=== PATIENT | male | born 1955 | race Caucasian/White ===

== ENCOUNTER 2019-11-17 09:31 | Outpatient (CLI) | payer MEDICARE, OTHER, SELFPAY | END 2019-11-17 09:32 | disposition home or self-care (01) | LOC: ANHAUDIO 09:32 | PROVIDERS: PCP Internal Medicine; Visit Provider Otolaryngology | DX: H90.3 Sensorineural hearing loss, bilateral (principal) | CPT/HCPCS: 92557; 92567 ==

== ENCOUNTER 2020-01-26 08:59 | Outpatient (CLI) | payer MEDICARE, OTHER, SELFPAY ==
[2020-01-26 09:40] LABS: Alanine Aminotransferase 15 U/L (4-50); Albumin Level 4.4 g/dL (3.5-5.1); Alkaline Phosphatase 45 U/L (38-126); Anion Gap 11.2 mmol/L (7-16); Aspartate Amino Transferase 22 U/L (17-59); Bilirubin,Total 0.6 mg/dL (0.2-1.3); Blood Urea Nitrogen 18 mg/dL (9-20); Calcium 9.2 mg/dL (8.4-10.2); Carbon Dioxide 26 mmol/L (22-30); Chloride 103 mmol/L (98-107); Cholesterol 147 mg/dL (0-200); Estimated Glomerular Filt Rate > 60; Glucose 116 mg/dL (75-110); HDL Direct 35 mg/dL; Potassium 4.2 mmol/L (3.4-5.0); Sodium 136 mmol/L (137-145); Triglycerides 150 mg/dL (<150)
[2020-01-26 09:51] LABS: LDL Cholesterol Direct 73 mg/dL
[2020-01-26 10:01] LABS: Hemoglobin A1C 5.9 % (<5.7)
[2020-01-26 11:42] LABS: Creatinine Urine 51.9 mg/dL
[2020-01-26 11:47] LABS: MALB Creatinine Ratio < 11.6 mg/g (0-30); Microalbumin Urine Random < 6.0 mg/L (0-16.7)
== END 2020-01-26 09:00 | disposition home or self-care (01) ==
LOC: ANHLAB 09:01
PROVIDERS: PCP Internal Medicine; Visit Provider Nurse Practitioner
DX: E11.311 Type 2 diabetes mellitus with unspecified diabetic retinopathy with macular edema (principal); E78.2 Mixed hyperlipidemia
CPT/HCPCS: 36415; 80053; 80061; 82043; 83036

== ENCOUNTER 2020-05-17 13:42 | Outpatient (NON) | payer MEDICARE, OTHER, SELFPAY ==
[2020-05-18 21:00] LABS: SARS-CoV-2 RNA PCR Positive
== END 2020-05-17 13:43 ==
LOC: ANHCOVIDDT 13:45
PROVIDERS: PCP Internal Medicine; Visit Provider Internal Medicine
DX: R68.89 Other general symptoms and signs (principal); U07.1 COVID-19
CPT/HCPCS: 87635; C9803; U0003

== ENCOUNTER 2020-07-28 09:10 | Outpatient (CLI) | payer MEDICARE, OTHER, SELFPAY ==
[2020-07-28 09:57] LABS: Alanine Aminotransferase 20 U/L (4-50); Albumin Level 4.4 g/dL (3.5-5.1); Alkaline Phosphatase 46 U/L (38-126); Anion Gap 5 mmol/L (8-16); Aspartate Amino Transferase 25 U/L (17-59); Bilirubin,Total 0.5 mg/dL (0.2-1.3); Blood Urea Nitrogen 19 mg/dL (9-20); Calcium 9.2 mg/dL (8.4-10.2); Carbon Dioxide 29 mmol/L (22-30); Chloride 104 mmol/L (98-107); Cholesterol 151 mg/dL (0-200); Estimated Glomerular Filt Rate > 60; Glucose 126 mg/dL (75-110); HDL Direct 33 mg/dL; Potassium 4.8 mmol/L (3.4-5.0); Sodium 138 mmol/L (137-145); Triglycerides 189 mg/dL (<150)
[2020-07-28 10:07] LABS: LDL Cholesterol Direct 77 mg/dL
[2020-07-28 10:27] LABS: Prostate Specific Antigen 1.1 ng/mL (< OR = 4.0)
== END 2020-07-28 09:11 | disposition home or self-care (01) ==
LOC: ANHLAB 09:12
PROVIDERS: PCP Internal Medicine; Visit Provider Internal Medicine
DX: Z12.5 Encounter for screening for malignant neoplasm of prostate (principal); E11.311 Type 2 diabetes mellitus with unspecified diabetic retinopathy with macular edema; Z51.81 Encounter for therapeutic drug level monitoring; Z79.899 Other long term (current) drug therapy; E78.5 Hyperlipidemia, unspecified
CPT/HCPCS: 36415; 80053; 80061; 83036; 84153; G0103

== ENCOUNTER 2020-08-11 11:08 | Outpatient (CLI) | payer MEDICARE, OTHER, SELFPAY ==
--- NOTE | ~2020-08-11 | US_ITS ---
EXAMINATION: US carotid duplex BI DATE: 08/11/2020 11:42 INDICATION: Paresthesias of the scan TECHNIQUE: Grayscale, color Doppler, and pulsed Doppler images of the cervical carotid arteries were obtained. The degree of vessel stenosis is placed in one of the following categories: normal, <50%, 5 0-69%, >=70% but less than near-occlusion, near-occlusion, or total occlusion. Note that percent sten osis relative to normal distal artery lumen diameter is indirectly measured from velocity measurement s as described by Mazin, et al. Radiology 2003; 229:340-346. Notes: Normal: Peak systolic velocity <125 centimeters/sec and no plaque <50%. Peak systolic velocity <125 ( EDV <40; ICA/CCA PSV ratio <2.0; used these factors only a tandem lesions or low cardiac output or co ntralateral disease) 50-69 %: PSV 125-230 (EDV 40-100; ratio 2-4) >= 70% but less than near occlusion: PSV greater than 230 (EDV > 100; ratio> 4.0) Near Occlusion: PSV that is variable; markedly narrowed lumen Occlusion: Absent flow on color/spectral Doppler and no lumen on hanson scale. COMPARISON: None. FINDINGS: RIGHT: The right common carotid artery (CCA) peak systolic velocity (PSV) is 81 cm/s. The right internal car otid artery (ICA) PSV is 69 cm/s. The right ICA end-diastolic velocity (EDV) is 23 cm/s. The right IC A/CCA PSV ratio is 0.9. The external carotid artery (ECA) PSV is 69 cm/s. There is antegrade flow in the right vertebral artery. LEFT: The left CCA PSV is 84 cm/s. The left ICA PSV is 81 cm/s. The left ICA EDV is 23 cm/s. The left ICA/C CA PSV ratio is 1.0. The ECA PSV is 80 cm/s. There is antegrade flow in the left vertebral artery. IMPRESSION: 1. Less than 50% stenosis in the right internal carotid artery by sonographic criteria. 2. Less than 50% stenosis in the left internal carotid artery by sonographic criteria. Reviewed, dictated and finalized at location B. AINABLE SYSTEMS ANALYST IMPRESSION: 1. Less than 50% stenosis in the right internal carotid artery by sonographic c mehrdad. 2. Less than 50% stenosis in the left internal carotid artery by sonographic harry rizzo.
--- NOTE | ~2020-08-11 | CT_ITS ---
EXAMINATION: CT brain wo/w con DATE: 08/11/2020 11:57 INDICATION: Paresthesias of the skin TECHNIQUE: Computed tomography (CT) of the head was performed without and with 100 cc Omnipaque 350 i ntravenous contrast. The dose-length product was 1362.00 mGy-cm. Automated exposure control and itera tive reconstruction technique were employed. COMPARISON: CT dated 08/11/2020 FINDINGS: No acute intracranial hemorrhage, infarction, mass or mass effect. No ventriculomegaly or m idline shift. Basilar cisterns are patent. There is intracranial atherosclerosis. Basilar cisterns ar e patent. There are scattered mild periventricular and subcortical white matter changes, most likely related to small vessel ischemic disease (microangiopathy). No abnormal contrast enhancement. Paranas al sinuses and mastoids are pneumatized. No depressed skull fractures. There is mild mucosal thickeni ng of the maxillary sinuses. Mastoids are pneumatized. IMPRESSION: 1. No acute intracranial abnormality. Reviewed, dictated and finalized at location B. CONTENT DEVELOPER
== END 2020-08-11 11:09 | disposition home or self-care (01) ==
LOC: ANHIMG 11:17
PROVIDERS: PCP Internal Medicine; Visit Provider Nurse Practitioner
DX: R20.2 Paresthesia of skin (principal)
CPT/HCPCS: 70470; 93880; Q9967

== ENCOUNTER 2021-02-07 07:54 | Outpatient (CLI) | payer MEDICARE, OTHER, SELFPAY ==
[2021-02-07 08:32] LABS: Alanine Aminotransferase 21 U/L (4-50); Albumin Level 4.3 g/dL (3.5-5.1); Alkaline Phosphatase 57 U/L (38-126); Anion Gap 6 mmol/L (8-16); Aspartate Amino Transferase 24 U/L (17-59); Bilirubin,Total 0.4 mg/dL (0.2-1.3); Blood Urea Nitrogen 21 mg/dL (9-20); Calcium 9.5 mg/dL (8.4-10.2); Carbon Dioxide 28 mmol/L (22-30); Chloride 102 mmol/L (98-107); Cholesterol 178 mg/dL (0-200); Estimated Glomerular Filt Rate > 60; Glucose 123 mg/dL (65-110); HDL Direct 37 mg/dL; Potassium 4.3 mmol/L (3.4-5.0); Sodium 136 mmol/L (137-145); Triglycerides 228 mg/dL (<150)
[2021-02-07 08:43] LABS: LDL Cholesterol Direct 80 mg/dL
[2021-02-07 09:31] LABS: Creatinine Urine 43.4 mg/dL
[2021-02-07 09:42] LABS: MALB Creatinine Ratio < 13.8 mg/g (0-30); Microalbumin Urine Random < 6.0 mg/L (0-16.7)
[2021-02-07 10:37] LABS: Hemoglobin A1C 6.2 % (<5.7)
== END 2021-02-07 07:55 | disposition home or self-care (01) ==
LOC: ANHLAB 08:00
PROVIDERS: PCP Internal Medicine; Visit Provider Nurse Practitioner
DX: E78.5 Hyperlipidemia, unspecified (principal); E11.311 Type 2 diabetes mellitus with unspecified diabetic retinopathy with macular edema
CPT/HCPCS: 36415; 80053; 80061; 82043; 83036

== ENCOUNTER 2021-08-22 07:38 | Outpatient (CLI) | payer MEDICARE, SELFPAY ==
[2021-08-22 08:14] LABS: Alanine Aminotransferase 20 U/L (4-50); Albumin Level 4.3 g/dL (3.5-5.1); Alkaline Phosphatase 52 U/L (38-126); Anion Gap 5 mmol/L (8-16); Aspartate Amino Transferase 26 U/L (17-59); Bilirubin,Total 0.5 mg/dL (0.2-1.3); Blood Urea Nitrogen 22 mg/dL (9-20); Calcium 8.8 mg/dL (8.4-10.2); Carbon Dioxide 27 mmol/L (22-30); Chloride 106 mmol/L (98-107); Cholesterol 174 mg/dL (0-200); Estimated Glomerular Filt Rate > 60; Glucose 130 mg/dL (65-110); HDL Direct 40 mg/dL; Potassium 4.6 mmol/L (3.4-5.0); Sodium 138 mmol/L (137-145); Triglycerides 170 mg/dL (<150)
[2021-08-22 08:26] LABS: LDL Cholesterol Direct 93 mg/dL
[2021-08-22 08:29] LABS: Creatinine Urine 145.9 mg/dL
[2021-08-22 08:43] LABS: Prostate Specific Antigen 1.1 ng/mL (< OR = 4.0)
[2021-08-22 09:10] LABS: Hemoglobin A1C 6.2 % (<5.7)
[2021-08-22 09:18] LABS: MALB Creatinine Ratio < 4.1 mg/g (0-30); Microalbumin Urine Random < 6.0 mg/L (0-16.7)
== END 2021-08-22 07:39 | disposition home or self-care (01) ==
PROVIDERS: PCP Internal Medicine; Visit Provider Nurse Practitioner
DX: E11.311 Type 2 diabetes mellitus with unspecified diabetic retinopathy with macular edema (principal); Z12.5 Encounter for screening for malignant neoplasm of prostate; E78.2 Mixed hyperlipidemia
CPT/HCPCS: 36415; 80053; 80061; 82043; 83036; 84153; G0103

== ENCOUNTER 2022-02-28 07:43 | Outpatient (CLI) | payer MEDICARE, SELFPAY ==
[2022-02-28 08:17] LABS: Hemoglobin A1C 6.3 % (<5.7)
[2022-02-28 08:19] LABS: Alanine Aminotransferase 17 U/L (6-50); Albumin Level 4.3 g/dL (3.5-5.1); Alkaline Phosphatase 54 U/L (38-126); Anion Gap 12 mmol/L (8-16); Aspartate Amino Transferase 21 U/L (17-59); Bilirubin,Total 0.5 mg/dL (0.2-1.3); Blood Urea Nitrogen 20 mg/dL (9-20); Calcium 9.4 mg/dL (8.4-10.2); Carbon Dioxide 25 mmol/L (22-30); Chloride 102 mmol/L (98-107); Cholesterol 153 mg/dL (0-200); Estimated Glomerular Filt Rate > 60; Glucose 132 mg/dL (65-110); HDL Direct 40 mg/dL; Potassium 4.3 mmol/L (3.4-5.0); Sodium 139 mmol/L (137-145); Triglycerides 176 mg/dL (<150)
[2022-02-28 08:30] LABS: LDL Cholesterol Direct 65 mg/dL
== END 2022-02-28 07:44 | disposition home or self-care (01) ==
LOC: ANHLAB 07:55
PROVIDERS: PCP Internal Medicine; Visit Provider Internal Medicine
DX: E11.311 Type 2 diabetes mellitus with unspecified diabetic retinopathy with macular edema (principal); E78.2 Mixed hyperlipidemia
CPT/HCPCS: 36415; 80053; 80061; 83036

== ENCOUNTER 2022-06-30 17:57 | Emergency (ER) | payer MEDICARE, SELFPAY ==
[2022-06-30] VITALS (12 sets, daily range): BP systolic 125–159; BP diastolic 81–95; PULSE 71–89; RESP 11–19; TEMP 36.4; O2SAT 96–99
--- NOTE | ~2022-06-30 | CT_ITS ---
EXAMINATION: CTA chest PE protocol DATE: 06/30/2022 22:15 INDICATION: Right chest pain. Shortness of breath. TECHNIQUE: Computed tomography angiography (CTA) of the chest was performed with 100 mL Omnipaque-350 intravenous contrast timed to evaluate the pulmonary arteries. Coronal maximum intensity projection 3D-reconstructions were created by the technologist. Automated exposure control and iterative reconst ruction technique were employed. The dose-length product was 638.00 mGy-cm. COMPARISON: Chest 2 views 06/30/2022 FINDINGS: The lungs demonstrate mild atelectasis. No pleural effusion. Calcified left hilar lymph nod es are consistent with old granulomatous disease. The heart size is normal. There are coronary artery calcifications. No pericardial effusion. The central pulmonary arteries are enlarged, consistent wit h pulmonary arterial hypertension. There is no pulmonary embolus. There is mild thoracic spondylosis. IMPRESSION: 1. No pulmonary embolus. Reviewed, dictated and finalized at location A. DINGS PAINTER IMPRESSION: 1. No pulmonary embolus.
--- NOTE | ~2022-06-30 | XR_ITS ---
EXAMINATION: XR chest 2V Exam Date/Time: 06/30/2022 18:15 WOOL HAT FINISHER HISTORY: right sided chest pain x 6 days, not getting better Comparison: None available. RESULT: Lines, tubes, and devices: None. Lungs and pleura: Clear. Cardiomediastinal silhouette: Unremarkable. Other: No acute osseous or upper abdominal finding. IMPRESSION: No acute cardiopulmonary process. Reviewed, dictated and finalized at location K. HAT FINISHER
--- NOTE | 2022-06-30 17:58 | ECG_ITS ---
Measurements Intervals [place] Rate: 81 P: 59 FL: 152 QRS: -18 QRSD: 90 T: 35 QT: 353 QTc: 411 Interpretive Statements SINUS RHYTHM POOR R WAVE PROGRESSION, ANTERIOR LEADS BASELINE ARTIFACT- I, III, AVL, AVF, V3 BORDERLINE ECG NO PREVIOUS ECG AVAILABLE FOR COMPARISON Electronically Signed On 06-30-2022 19:38:35 COMPUTER EDUCATION TEACHER by Andrew Arriaga D.O.
[2022-06-30 18:29] LABS: Basophils Absolute Auto 0.1 K/mm3 (0.0-0.1); Basophils Percent Auto 0.6 % (0.2-1.2); Eosinophils Absolute Auto 0.2 K/mm3 (0-0.3); Eosinophils Percent Auto 2.4 % (0-4.4); Hematocrit 41.5 % (42.0-52.0); Hemoglobin 13.9 g/dL (14.0-18.0); Immature Granulocyte Absolute 0.05 K/mm3 (0.00-0.031); Immature Granulocyte Percent A 0.6 % (0-0.5); Lymphocytes Absolute Auto 2.49 K/mm3 (0.9-3.2); Lymphocytes Percent Auto 28.4 % (18.3-44.2); Mean Corpuscular HGB Conc 33.5 g/dl (32-36); Mean Corpuscular Hemoglobin 30.1 pg (26-34); Mean Corpuscular Volume 89.8 fl (80-100); Mean Platelet Volume 9.2 fl (7.4-10.4); Monocytes Absolute Auto 0.6 K/mm3 (0.1-0.6); Monocytes Percent Auto 7.1 % (2.6-8.5); Neutrophils Absolute Auto 5.4 K/mm3 (1.3-6.7); Neutrophils Percent Auto 60.9 % (45.5-73.1); Platelet Count Result 274 k/mm3 (150-375); Red Blood Count 4.62 M/mm3 (4.6-6.20); Red Cell Distribution Width 12.6 % (11.5-14.5); White Blood Count 8.8 K/mm3 (4.5-10.0)
[2022-06-30 19:15] LABS: Alanine Aminotransferase 23 U/L (6-50); Albumin Level 4.5 g/dL (3.5-5.1); Alkaline Phosphatase 73 U/L (38-126); Anion Gap 5 mmol/L (8-16); Aspartate Amino Transferase 30 U/L (17-59); Bilirubin,Total 0.5 mg/dL (0.2-1.3); Blood Urea Nitrogen 17 mg/dL (9-20); Calcium 8.9 mg/dL (8.4-10.2); Carbon Dioxide 28 mmol/L (22-30); Chloride 104 mmol/L (98-107); Estimated CRCL calculation 70 ml/min; Estimated Glomerular Filt Rate > 60; Glucose 152 mg/dL (65-110); Lipase 77 U/L (23-300); Potassium 4.5 mmol/L (3.4-5.0); Sodium 137 mmol/L (137-145)
[2022-06-30 19:26] LABS: Troponin I < 0.012 ng/mL (0.000-0.034)
--- NOTE | 2022-06-30 21:37 | ED.CHESTPAIN ---
HPI - Chest Pain General Chief Complaint: Chest Pain Stated Complaint: chest pain Time Seen by Provider: 06/30/22 21:29 Source: RN notes reviewed History of Present Illness HPI narrative: Patient presents emergency department from home for chest pain. Patient states that over the past week he has had pain in the right side of the chest that radiates around into his right shoulder blade. The pain is described as a pressure in nature. States it makes the pain better or worse. He notes some mild shortness of breath with the symptoms he denies any previous cardiac history he denies any fevers or chills abdominal pain nausea vomiting diarrhea or any other symptoms. Patient states he was in [place] last week and had gone to the emergency department last in [place] and had a work-up that was negative including a CT scan and then was cleared and discharged from the ER he states that he flew home and continued pain and came for further evaluation Related Data Allergies Allergy/AdvReac Type Severity Reaction Status Date / Time No Known Allergies Allergy Unknown Unknown Uncoded 06/30/22 22:51 Review of Systems Review of Systems: Gen.: Denies fevers or chills ENT: Denies congestion Respiratory: Ports shortness of breath CV no chest pain GI: Denies abdominal pain nausea, emesis or diarrhea Musculoskeletal: Denies back pain or muscle pain Neuro: Denies numbness, tingling, weakness or focal weakness Skin: Denies rash Except as documented, all other systems reviewed and negative [facility] Past Medical History Medical History (Updated 07/01/22 @ 01:00 by Elias Parsons DO) Tinnitus 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 CARDIOVASCULAR: Regular rate and rhythm without murmurs rubs or gallops. ABDOMINAL: Soft, nontender, nondistended, no rebound or guarding MUSCULOSKELETAl: Moves all extremities. No clubbing, cyanosis or edema. NEURO: Awake and alert. Following commands, speech normal, no focal deficits SKIN:: Warm, dry. No rashes lesions or abrasions no rash on chest PSYCHIATRIC: Normal affect/mood, Course Course Emergency Course: : Discussed with Dr. Nichols presentation work-up we discussed the patient's heart score as well as pain for 5 days with 3 negative troponins at this time he feels patient may be discharged follow-up as an outpatient Patient does note some improvement pain with Toradol Discussed with patient results of workup and diagnosis. Discussed need for follow-up with primary care, proper use of medication, and reasons to return to the emergency department. Patient understands and agrees to current treatment plan Vital Signs Vital signs: Vital Signs Temperature 97.6 F 06/30/22 18:04 Pulse Rate 89 06/30/22 18:04 Respiratory Rate 16 06/30/22 18:04 Blood Pressure 146/81 H 06/30/22 18:04 Pulse Oximetry 99 06/30/22 18:04 Oxygen Delivery Room Air 06/30/22 18:04 Temperature 97.6 F 06/30/22 18:04 Pulse Rate 80 06/30/22 22:51 Respiratory Rate 16 06/30/22 22:45 Blood Pressure 125/85 06/30/22 21:47 Pulse Oximetry 97 06/30/22 22:45 Oxygen Delivery Room Air 06/30/22 18:04 MDM - Chest Pain MDM Narrative Medical decision making narrative: Patient's EKGs and labs are without significant high risk changes. Cardiac risk factors reviewed. Pain has been constant for 5 days with 3 negative troponins in the emergency department. CTA shows no pneumonia aneurysm or
[2022-06-30 22:04] LABS: Prothrombin Time 12.9 Seconds (11.1-14.7)
[2022-06-30 22:05] LABS: Partial Thromboplastin Time 26.3 SECONDS (22.3-36.8)
[2022-06-30 22:14] LABS: Troponin I < 0.012 ng/mL (0.000-0.034)
--- NOTE | 2022-06-30 23:09 | PC.NURSE ---
Report received from TYLER Paz. Assumed care of patient at this time.
[2022-07-01 00:14] VITALS: O2SAT 93
[2022-07-01 00:15] VITALS: PULSE 68; O2SAT 98
[2022-07-01 00:16] VITALS: BP 109/84; PULSE 71; RESP 15; O2SAT 97
[2022-07-01 00:35] VITALS: O2SAT 98
[2022-07-01 00:45] VITALS: PULSE 67; O2SAT 97
[2022-07-01 00:50] LABS: Troponin I < 0.012 ng/mL (0.000-0.034)
[2022-07-01 01:00] VITALS: O2SAT 98
[2022-07-01] MEDS: KETOROLAC 15 MG/ML VIAL (*BKC) IV PUSH (01:06)
== END 2022-07-01 01:12 | disposition home or self-care (01) ==
PROVIDERS: Emergency Medicine; Emergency Provider Emergency Medicine; PCP Internal Medicine
DX: R07.89 Other chest pain (principal); E11.311 Type 2 diabetes mellitus with unspecified diabetic retinopathy with macular edema; Z79.84 Long term (current) use of oral hypoglycemic drugs; Z79.82 Long term (current) use of aspirin; R94.31 Abnormal electrocardiogram [ECG] [EKG]
CPT/HCPCS: 36415; 71046; 71275; 80053; 83690; 84484; 85025; 85610; 85730; 93005; 96374; 99284; A9270; J1885; Q9967

== ENCOUNTER 2022-07-04 13:27 | Outpatient (CLI) | payer MEDICARE, SELFPAY ==
--- NOTE | ~2022-07-04 | XR_ITS ---
XR_CERV2-3V_CR DATE: 07/04/2022 13:51 INDICATION: Right neck pain. No known injury. TECHNIQUE: AP, lateral, open-mouth and swimmer views COMPARISON: None FINDINGS: There is straightening of the cervical spine which may be due to muscle spasm. C1 and C2 are normally aligned and the odontoid process is intact. No fracture or dislocation or lock ed facet or prevertebral soft tissue swelling. Moderately severe degenerative disc disease at C3-4. Mild degenerative disc disease at C4-5 and C5-6. Moderately severe degenerative disc disease at C6-7. No fracture or dislocation, locked facet or prevertebral soft tissue swelling IMPRESSION: Straightening of the cervical spine, which may be due to muscle spasm Multilevel degenerative disc disease Reviewed, dictated and finalized at Location A. Reviewed, dictated and finalized at location A. ERIES SPECIALIST IMPRESSION: Straightening of the cervical spine, which may be due to muscle spa sm Multilevel degenerative disc disease
--- NOTE | ~2022-07-04 | XR_ITS ---
XR thoracic spine 3V DATE: 07/04/2022 13:51 INDICATION: Right back pain TECHNIQUE: AP, lateral, swimmer views COMPARISON: None FINDINGS: There is cervical spondylosis including moderately severe degenerative disc disease at C3-4 , C5-6 and C6-7. Diffuse idiopathic skeletal hyperostosis of the thoracic spine. No fracture or dislocation or bone destruction. The thoracic pedicles are intact. No paraspinal soft tissue thickening. IMPRESSION: Cervical spondylosis Diffuse idiopathic skeletal hyperostosis of the thoracic spine Reviewed, dictated and finalized at location A. STITCHER
== END 2022-07-04 13:28 | disposition home or self-care (01) ==
LOC: ANHIMG 13:32
PROVIDERS: PCP Internal Medicine; Visit Provider Internal Medicine
DX: M54.9 Dorsalgia, unspecified (principal); M54.2 Cervicalgia; M43.02 Spondylolysis, cervical region; M48.14 Ankylosing hyperostosis [Forestier], thoracic region; M50.30 Other cervical disc degeneration, unspecified cervical region
CPT/HCPCS: 72040; 72072

== ENCOUNTER 2022-08-14 07:24 | Outpatient (CLI) | payer MEDICARE, SELFPAY ==
--- NOTE | ~2022-08-14 | MR_ITS ---
EXAMINATION: MR cervical spine wo con DATE: 08/14/2022 08:00 INDICATION: Neck pain. Left arm numbness. TECHNIQUE: Magnetic resonance imaging (MRI) of the cervical spine was performed without intravenous c ontrast. Sequences included sagittal T2-weighted FSE, sagittal T2-weighted FS FSE, sagittal T1-weight ed FSE, axial MERGE, and axial T2-weighted FSE. COMPARISON: Cervical spine radiographs 07/04/2022 FINDINGS: There is mild kyphosis of lower cervical spine. There is mild chronic anterior wedging of C 6 vertebral body. There is severely decreased disc height at C3-C4, mildly decreased disc height at C 4-C5, and moderately decreased disc height at C6-C7. The spinal cord signal intensity is normal. The following disc levels are specifically discussed: C2-C3: There is a central extrusion. There is no uncovertebral joint osteoarthritis. There is moderat e right and severe left facet joint osteoarthritis. There is moderate left neural foraminal stenosis. There is mild central canal stenosis. C3-C4: The disc is bulging with superimposed central extrusion. There is severe bilateral uncovertebr al joint osteoarthritis. There is moderate right and severe left facet joint osteoarthritis. There is severe bilateral neural foraminal stenosis. There is moderate central canal stenosis with ventral an d dorsal indentation of the spinal cord. C4-C5: The disc is bulging. There is moderate right and mild left uncovertebral joint osteoarthritis. There is severe right and moderate left facet joint osteoarthritis. There is severe right and mild l eft neural foraminal stenosis. There is mild central canal stenosis. C5-C6: The disc is bulging. There is moderate bilateral uncovertebral joint osteoarthritis. There is severe bilateral facet joint osteoarthritis. There is moderate bilateral neural foraminal stenosis. T here is mild central canal stenosis with ventral indentation of the spinal cord. C6-C7: The disc is bulging. There is severe bilateral uncovertebral joint osteoarthritis. There is mi ld bilateral facet joint osteoarthritis. There is severe bilateral neural foraminal stenosis. There i s mild central canal stenosis. C7-T1: There is a central extrusion. There is mild bilateral uncovertebral joint osteoarthritis. Ther e is severe bilateral facet joint osteoarthritis. There is mild bilateral neural foraminal stenosis. There is no central canal stenosis. IMPRESSION: 1. Severe cervical spondylosis. Reviewed, dictated and finalized at location A. R ENERGY CONSULTANT AND DESIGNER
== END 2022-08-14 07:25 | disposition home or self-care (01) ==
PROVIDERS: PCP Internal Medicine; Visit Provider Orthopaedic Surgery
DX: M47.812 Spondylosis without myelopathy or radiculopathy, cervical region (principal)
CPT/HCPCS: 72141

== ENCOUNTER 2022-11-22 08:33 | Outpatient (CLI) | payer MEDICARE, SELFPAY ==
[2022-11-22 09:34] LABS: Hemoglobin A1C 6.8 % (<5.7)
[2022-11-22 09:35] LABS: Alanine Aminotransferase 24 U/L (6-50); Albumin Level 4.3 g/dL (3.5-5.1); Alkaline Phosphatase 53 U/L (38-126); Anion Gap 5 mmol/L (8-16); Aspartate Amino Transferase 29 U/L (17-59); Bilirubin,Total 0.7 mg/dL (0.2-1.3); Blood Urea Nitrogen 16 mg/dL (9-20); Carbon Dioxide 28 mmol/L (22-30); Chloride 104 mmol/L (98-107); Cholesterol 181 mg/dL (0-200); Estimated Glomerular Filt Rate > 60; Glucose 148 mg/dL (65-110); HDL Direct 35 mg/dL; Potassium 4.7 mmol/L (3.4-5.0); Sodium 137 mmol/L (137-145); Triglycerides 235 mg/dL (<150)
[2022-11-22 09:47] LABS: LDL Cholesterol Direct 85 mg/dL
[2022-11-22 10:06] LABS: Prostate Specific Antigen 1.3 ng/mL (< OR = 4.0)
== END 2022-11-22 08:34 | disposition home or self-care (01) ==
LOC: ANHLAB 08:35
PROVIDERS: PCP Family Medicine; Visit Provider Nurse Practitioner
DX: E11.9 Type 2 diabetes mellitus without complications (principal); Z12.5 Encounter for screening for malignant neoplasm of prostate; E78.5 Hyperlipidemia, unspecified
CPT/HCPCS: 36415; 80053; 80061; 83036; 84153; G0103

== ENCOUNTER 2023-05-29 08:10 | Outpatient (CLI) | payer MEDICARE, SELFPAY ==
[2023-05-29 09:19] LABS: Alanine Aminotransferase 24 U/L (6-50); Albumin Level 4.2 g/dL (3.5-5.1); Alkaline Phosphatase 60 U/L (38-126); Anion Gap 10 mmol/L (8-16); Aspartate Amino Transferase 26 U/L (17-59); Bilirubin,Total 0.8 mg/dL (0.2-1.3); Blood Urea Nitrogen 17 mg/dL (9-20); Calcium 9.2 mg/dL (8.4-10.2); Carbon Dioxide 24 mmol/L (22-30); Chloride 104 mmol/L (98-107); Cholesterol 190 mg/dL (0-200); Estimated Glomerular Filt Rate > 60; Glucose 152 mg/dL (65-110); HDL Direct 35 mg/dL; Potassium 4.3 mmol/L (3.4-5.0); Sodium 138 mmol/L (137-145); Triglycerides 233 mg/dL (<150)
[2023-05-29 09:32] LABS: LDL Cholesterol Direct 85 mg/dL
[2023-05-29 09:52] LABS: Hemoglobin A1C 6.8 % (<5.7)
== END 2023-05-29 08:11 | disposition home or self-care (01) ==
PROVIDERS: PCP Nurse Practitioner; Visit Provider Nurse Practitioner
DX: E78.5 Hyperlipidemia, unspecified (principal); E11.9 Type 2 diabetes mellitus without complications
CPT/HCPCS: 36415; 80053; 80061; 83036

== ENCOUNTER 2023-07-06 13:32 | Emergency (ER) | payer MEDICARE, SELFPAY ==
[2023-07-06] VITALS (27 sets, daily range): BP systolic 110–130; BP diastolic 66–94; PULSE 88–104; RESP 14–26; TEMP 36.8; O2SAT 93–98
--- NOTE | ~2023-07-06 | CT_ITS ---
EXAMINATION: CT abdomen pelvis w con INDICATION: Diffuse abdominal pain and bloating TECHNIQUE: Computed tomographic images of the abdomen and pelvis were obtained after the administrati on of 100 cc of Omnipaque 350 intravenous contrast. The dose-length product (DLP) was 910.11 mGy-cm. Automated exposure control and iterative reconstruction technique were employed. COMPARISON: None available FINDINGS: Minimal dependent atelectasis is present in the lung bases. The heart size is normal. The l iver, spleen, pancreas, gallbladder, and adrenal glands are normal. Hypoattenuating lesions of the ki dneys, measuring up to 10 mm on the left, are consistent with cysts. There is a small sliding hiatal hernia. No pathologically enlarged abdominal or pelvic lymph nodes are identified. No free intraperit urias gas or evidence of bowel obstruction. There is a left inguinal hernia containing fat. There is mild lumbar spondylosis. IMPRESSION: 1. No CT correlate for the patient's symptoms. Reviewed, dictated and finalized at location F. CAL COLLECTIONS SPECIALIST
--- NOTE | 2023-07-06 13:46 | ECG_ITS ---
Measurements Intervals [place] Rate: 99 P: 32 PA: 154 QRS: -44 QRSD: 86 T: 23 QT: 328 QTc: 423 Interpretive Statements SINUS RHYTHM LEFT AXIS DEVIATION LATERAL INFARCT, AGE INDETERMINATE CONSIDER INFERIOR INFARCT, AGE INDETERMINATE BASELINE ARTIFACT- I, II, III, AVL, AVF, V1, V3, V5 ABNORMAL ECG COMPARED TO ECG 06/30/2022 18:04:04 LEFT-AXIS DEVIATION NOW PRESENT Electronically Signed On 07-06-2023 16:14:14 PUBLIC HEALTH PHYSICIAN by Andrew Arriaga D.O.
[2023-07-06 14:17] LABS: Basophils Percent Auto 0.2 % (0.2-1.2); Eosinophils Absolute Auto 0.1 K/mm3 (0-0.3); Eosinophils Percent Auto 0.5 % (0-4.4); Hematocrit 44.4 % (42.0-52.0); Hemoglobin 14.4 g/dL (14.0-18.0); Immature Granulocyte Absolute 0.05 K/mm3 (0.00-0.031); Immature Granulocyte Percent A 0.4 % (0-0.5); Lymphocytes Absolute Auto 0.53 K/mm3 (0.9-3.2); Lymphocytes Percent Auto 4.5 % (18.3-44.2); Mean Corpuscular HGB Conc 32.4 g/dl (32-36); Mean Corpuscular Volume 92.5 fl (80-100); Mean Platelet Volume 9.2 fl (7.4-10.4); Monocytes Absolute Auto 0.5 K/mm3 (0.1-0.6); Monocytes Percent Auto 4.2 % (2.6-8.5); Neutrophils Absolute Auto 10.6 K/mm3 (1.3-6.7); Neutrophils Percent Auto 90.2 % (45.5-73.1); Platelet Count Result 207 k/mm3 (150-375); White Blood Count 11.8 K/mm3 (4.5-10.0)
--- NOTE | 2023-07-06 14:43 | ED.GENADULT ---
HPI - General Adult General Chief complaint: Syncope Stated complaint: near syncope, abd pain x 3 hrs Time Seen by Provider: 07/06/23 14:43 Source: patient, family and EMS Mode of arrival: EMS Limitations: no limitations History of Present Illness HPI narrative: 67 YEARS OLD WHITE MALE CAME TO THE EMERGENCY ROOM BY AMBULANCE BECAUSE OF ABDOMINAL PAIN. PATIENT REPORTS WAKING UP THIS MORNING WITH ABDOMINAL PAIN, GENERALIZED, PULSATING WITH BLOATING. HE DENIES ANY FEVER, CHILLS, VOMITING, DIARRHEA. HE DENIES ANY AGGRAVATING OR RELIEVING FACTORS, PAIN WAS 6/10. PATIENT AFTER FINISHING HAVING A SHOWER FELT WEAK ALL OVER, WENT DOWN TO THE FLOOR SLOWLY, DENIED LOSS OF CONSCIOUSNESS, HEAD INJURY OR NECK INJURY OR BACK INJURY. OR ANY OTHER INJURIES. CURRENTLY PATIENT STILL HAVING DIFFUSE ABDOMINAL PAIN, NO RADIATION. HISTORY OF APPENDECTOMY, DIABETES, HYPERTENSION, HYPERLIPIDEMIA NOT ON BLOOD THINNER, DOES NOT SMOKE OR DRINK. Related Data Home Medications Medication Instructions Recorded Confirmed aspirin 81 mg tablet,delayed 81 mg PO DAILY 07/25/22 03/11/23 release (Adult Aspirin Regimen) Allergies Allergy/AdvReac Type Severity Reaction Status Date / Time No Known Allergies Allergy Unknown Unknown Uncoded 07/06/23 14:23 Review of Systems Review of Systems: All systems reviewed & are unremarkable except as noted in HPI and below ROS unobtainable: Yes unobtainable due to endotracheal tube PMFSH Past Medical History Medical History Arthritis Essential hypertension Mixed hyperlipidemia Sensorineural hearing loss, bilateral Tinnitus 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 States he wakes up once a night to use the restroom, does claim difficulty in maintaining an erection. Is okay to leave a detailed message regarding his private health information. Smoking status: Never smoker Second hand tobacco smoke exposure: No Alcohol intake: never Substance use: never Substance use type: does not use Lack of Transportation: No Lack of Food: Never True Current Housing: I Have Housing Concerned About Future Housing: No Difficulty Paying Gas/Electric Bills: No Difficulty Paying for Meds: No Currently Unemployed: No Education: Associate Degree Difficulty w/ Childcare or Family Care: No Living arrangements: with family Occupation/Education: occupation Additional occupation/education comments: Health And Safety Advisor at [employer]. Gender identity (if verbalized by the patient): Male Sexual Orientation (if Verbalized by the Patient): Straight or Heterosexual Spiritual care concerns: No Agree to blood products: Yes Exam Narrative: GENERAL APPEARANCE: WELL-DEVELOPED, WELL-NOURISHED SKIN: NORMAL COLOR HEAD: NORMOCEPHALIC, NONTRAUMATIC EYES: CLEAR CONJUNCTIVA ENT: OROPHARYNX NORMAL, EARS NORMAL, NOSE NORMAL NECK: SUPPLE, NONTENDER CHEST AND RESPIRATORY: AIRWAY PATENT, NO RESPIRATORY DISTRESS, NO ACCESSORY MUSCLE USE HEART: REGULAR RATE/RHYTHM ABDOMEN: SOFT, NONTENDER, NO ORGANOMEGALY, QUIET BOWEL SOUNDS VASCULAR: NORMAL PERIPHERAL PULSES, NORMAL CAPILLARY REFILL. MUSCULOSKELETAL: NORMAL RANGE OF MOTION, NONTENDER BACK NEUROLOGIC: ALERT AND ORIENTED ?3, ASSISTANT PRODUCER IS NORMAL TESTED, NO GROSS MOTOR DEFICIT
[2023-07-06 14:54] LABS: Alanine Aminotransferase 22 U/L (6-50); Albumin Level 4.4 g/dL (3.5-5.1); Alkaline Phosphatase 63 U/L (38-126); Anion Gap 11 mmol/L (8-16); Aspartate Amino Transferase 28 U/L (17-59); Bilirubin,Total 0.7 mg/dL (0.2-1.3); Blood Urea Nitrogen 19 mg/dL (9-20); Calcium 9.1 mg/dL (8.4-10.2); Carbon Dioxide 23 mmol/L (22-30); Chloride 104 mmol/L (98-107); Estimated CRCL calculation 71 ml/min; Estimated Glomerular Filt Rate > 60; Glucose 181 mg/dL (65-110); Potassium 4.5 mmol/L (3.4-5.0); Sodium 138 mmol/L (137-145)
[2023-07-06] MEDS: ONDANSETRON INJ 4 MG/2 ML VIAL IV PUSH (15:07)
[2023-07-06] MEDS: HYDROmorphone HCL INJ (*CRX) 1 MG/ML SYR 0.5 MG IV PUSH (15:07)
[2023-07-06] MEDS: SODIUM CHLORIDE 0.9% IV 1,000 ML 999 ML IV CONT (15:07)
[2023-07-06 15:20] LABS: Lactic Acid Reflex 1.9 mmol/L (0.7-2.0)
[2023-07-06 15:25] LABS: Lipase 138 U/L (23-300)
[2023-07-06 15:32] LABS: Partial Thromboplastin Time 22.5 SECONDS (22.3-36.8); Prothrombin Time 13.2 Seconds (11.1-14.7)
[2023-07-06 15:38] LABS: Troponin I < 0.012 ng/mL (0.000-0.034)
[2023-07-06 16:51] LABS: Appearance Urine Clear (Clear); Bilirubin Urine Negative (Negative); Blood Urine Negative (Negative); Color Urine Yellow (Yellow); Glucose Urine UA Negative (Negative); Ketones Urine Negative (Negative); Leukocyte Esterase Ur Negative LEU/UL (Negative); Nitrate Urine Negative (Negative); Protein Urine Negative (Negative); Urobilinogen Urine 0.2 mg/dL (<2.0)
[2023-07-06 17:05] LABS: Specific Grav Ur 1.083 (1.001-1.035)
[2023-07-06 17:06] LABS: Add Urine Microscopic? NO
[2023-07-06 17:45] LABS: Influenza A QL RT-PCR Negative (Negative); Influenza B QL RT-PCR Negative (Negative); RSV RNA, RT-PCR Negative (Negative); SARS-CoV-2 RNA PCR Negative (Negative)
== END 2023-07-06 18:32 | disposition home or self-care (01) ==
PROVIDERS: Emergency Provider Emergency Medicine; PCP Nurse Practitioner
DX: R10.84 Generalized abdominal pain (principal); Z20.822 Contact with and (suspected) exposure to COVID-19; I10 Essential (primary) hypertension; E78.2 Mixed hyperlipidemia; E11.311 Type 2 diabetes mellitus with unspecified diabetic retinopathy with macular edema; H90.3 Sensorineural hearing loss, bilateral; M19.90 Unspecified osteoarthritis, unspecified site; Z79.82 Long term (current) use of aspirin; Z79.84 Long term (current) use of oral hypoglycemic drugs
CPT/HCPCS: 36415; 74177; 80053; 81003; 83605; 83690; 84484; 85025; 85610; 85730; 87637; 93005; 96361; 96374; 96375; 99284; J1170; J2405; J7030; Q9967

== ENCOUNTER 2024-04-09 08:27 | Outpatient (CLI) | payer MEDICARE, SELFPAY ==
[2024-04-09 09:36] LABS: Alanine Aminotransferase 16 U/L (6-50); Albumin Level 4.3 g/dL (3.5-5.1); Alkaline Phosphatase 56 U/L (38-126); Anion Gap 8 mmol/L (4-12); Aspartate Amino Transferase 25 U/L (17-59); Bilirubin,Total 0.6 mg/dL (0.2-1.3); Blood Urea Nitrogen 20 mg/dL (9-20); Calcium 9.2 mg/dL (8.4-10.2); Carbon Dioxide 26 mmol/L (22-30); Chloride 103 mmol/L (98-107); Cholesterol 170 mg/dL (0-200); Estimated Glomerular Filt Rate > 60; Glucose 158 mg/dL (65-110); HDL Direct 37 mg/dL; Potassium 4.8 mmol/L (3.4-5.0); Sodium 137 mmol/L (137-145); Triglycerides 205 mg/dL (<150)
[2024-04-09 09:47] LABS: LDL Cholesterol Direct 80 mg/dL
[2024-04-09 10:03] LABS: Prostate Specific Antigen 1.3 ng/mL (< OR = 4.0)
[2024-04-09 10:55] LABS: Hemoglobin A1C 6.6 % (<5.7)
== END 2024-04-09 08:28 | disposition home or self-care (01) ==
PROVIDERS: PCP Nurse Practitioner; Visit Provider Nurse Practitioner
DX: E78.5 Hyperlipidemia, unspecified (principal); E11.9 Type 2 diabetes mellitus without complications; Z12.5 Encounter for screening for malignant neoplasm of prostate
CPT/HCPCS: 36415; 80053; 80061; 83036; 84153; G0103

== ENCOUNTER 2024-08-16 00:18 | Day surgery (SDC) | payer MEDICARE, SELFPAY ==
[2024-06-16 10:05] VITALS: BMI 32.1
--- NOTE | 2024-07-04 10:22 | SUR.PREOP ---
Pt called this am to cancel his appointment on 07/04 due to provider availability. Pt rescheduled to 08/16 at 730.KM
[2024-07-29 13:31] VITALS: BMI 32.1
--- OUTSIDE RECORDS SUMMARY | 2024-08-16 00:21 | XMS_ITS | Encounter Summary ---
Author Organization [facility] Address [address] [place] [address] Care Team Providers Care Skilled Trades Teacher Name Role Phone Moshe Weber Primary Care Provider [phone] Encounter Details Date Type Department Care Team (Late st Contact Info) Description 12/09/2018 Lab Requisition [facility] [address] [place] [address] Camille Garcia DO [address] [facility] [address] [place] [address] Social History Tobacco Use Types Packs/Day Years Used Date Smoking Tobacco: Never Sex and Gender Information Value Date Recorded Sex Assigned at Not on file Gender Identity Not on file Sexual Orientation Not on file documented as of this encounter Plan of Treatment Not on file documented as of this encounter Procedures Procedure Name Priority Date/Time Associated Diagnosis Comments DERMATOPATHOLOGY Routine 12/08/2018 12:0 0 AM CDT documented in this encounter Results * DERMATOPATHOLOGY (12/08/2018 12:00 AM CDT) Case Report Dermatopathology Report Case: [id number] Authorizing Provider: Camille Garcia DO Collected: 12/08/2018 12:00 AM Pathologist: Cecelia Reyna MD Received: 12/09/2018 09:27 AM Specimen: Skin, left crown of scalp 9 4:10 PM CDT DERMATOPATHOLOGY LABORATORY Final Diagnosis Specimen A. 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 Non-healing. 4:10 PM CDT DERMATOPATHOLOGY LABORATORY Gross Description Specimen A: Received is one formalin filled container labeled with the patient's name and designated left crown of scalp. The specimen consists of a shave measuring 3w6x5cf. Jar 0. 4:10 PM CDT DERMATOPATHOLOGY LABORATORY Microscopic Description Specimen A. SKIN, left crown of scalp: The epidermis shows parakeratosis, full thickness disorderly maturation of keratinocytes, mitoses at different levels, and dyskeratotic cells. 4:10 PM CDT DERMATOPATHOLOGY LABORATORY Disclaimer An external and internal positive and negative controls are appropriate for the histochemical, immunohistochemical and immunofluorescence stain(s) in this case (if any), except where stated explicitly. The performance characteristics of the stain(s) cited in this report were developed and its performance characteristic determined by the Dermatopathology Laboratory at [facility], directed by Dr. Jose Morgan. These tests need not be, and therefore are not, approved by the [place] Food and Drug Administration. The tests are used for clinical purposes. Billing Codes Specimen Charges Stain Charges 23598 1 9 4:10 PM CDT DERMATOPATHOLOGY LABORATORY Embedded Images 4:10 PM CDT DERMATOPATHOLOGY LABORATORY Pathology/Cytolog y TISSUE SPECIMEN FROM SKIN / Unknown 12/08/2018 12/09/2018 9:27 AM CDT Camille Garcia DO LAB - PATHOLOGY/C YTOLOGY ORDERABLES DERMATOPATHOLOGY LABORATORY [facility] - Department of Dermatology [address] [place] [address], 5th Floor Lab [address] [phone] documented in this encounter Visit Diagnoses Not on filedocumented in this encounter Care Teams Skilled Trades Teacher Relationship Specialty Start Date End Date Moshe Weber DO [address] [place] [address] PCP - General 01/21/19 documented as of this encounter
--- OUTSIDE RECORDS SUMMARY | 2024-08-16 00:21 | XMS_ITS | Data Portability ---
Author Organization [place] [facility] [employer] [employer] Address [address] [place] [address] Assessment Encounter Date Assessment Date Assessment LastModified by Organization Details LastModified Time 06/13/2017 06/13/2017 ak clinically sk clinically Not available 06/14/2017 15:27:49 08/26/2017 08/26/2017 AK R/O SCC mid vertex Ak's clinically face/ears Not available 08/26/2017 10:51:33 10/31/2017 10/31/2017 AK CLINICALLY X 3 VERTEX , LEFT HELIX SCC IN SITU VERTEX Not available 10/31/2017 16:56:03 02/13/2018 02/13/2018 scc in situ mid vertex Not available 02/13/2018 10:18:31 08/20/2018 08/20/2018 vv 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 Lab None recorded. Referral None recorded. Procedures None recorded. Surgeries None recorded. Imaging None recorded. Medication Orders Efudex 5 % topical cream 2017 018 INTERFACE [facility][id number], [address], [place], [place], [id number], 8 10:19:08 Patient TargetsNo targets recorded. Patient Instructions Encounter Date Encounter Id Patient Instructions Last Modified By Organization Details Last Modified Time 06/13/2017 [id number] seborrheic keratosis: care instructions Not available 06/13/2017 14:38:01 actinic keratosi s: care instructions Not available 06/13/2017 14:38:02 review diagnosis and treatment ln2 x 15+ face, scalp ak ln2 x 2 sk scalp Liquid Nitrogen may sting after the treatment. You may clean the area as usual. If the area blisters it is ok to pop as this will help with the comfort. You may apply either Aquaphor to the areas if you prefer but it is not necessary. On occasion a blood blister forms. If this happens to you please contact the office. recheck 6 mo Not available 06/14/2017 15:28:58 review diagnosis and treatment ln2 x 15+ face, scalp ak ln2 x 2 sk on scalp Liquid Nitrogen may sting after the treatment. You may clean the area as usual. If the area blisters it is ok to pop as this will help with the comfort. You may apply either Aquaphor to the areas if you prefer but it is not necessary. On occasion a blood blister forms. If this happens to you please contact the office. recheck 6 mo Not available 06/14/2017 15:29:13 08/26/2017 [id number] actinic keratosi s: care instructions Not available 08/26/2017 10:52:02 liquid nitrogen info Not available 08/26/2017 10:52:02 Discussed diagnosis and treatment LN2 x 6 to ak's on face, scalp, ears Liquid Nitrogen may sting after the treatment. You may clean the area as usual. If the area blisters it is ok to pop as this will help with the comfort. You may apply either Aquaphor to the areas if you prefer but it is not necessary. On occasion a blood blister forms. If this happens to you please contact the office. Shave bx to mid vertex Your shave biopsy has been covered with a latex free bandage. Please keep the area dry for 24 hours if possible. After the 24 hours you can change the bandage 2 X Day for approximately 5 days. It is recommended to change the bandage dry to dry. No Neosporin. If the wound seems to be too moist then take the bandage off and allow the wound to dry out. Should you notice any painfulness, exquisite tenderness, yellow or green discharge then call the office immediately so that the wound can be evaluated. Recheck in 6 mo Not available 08/26/2017 10:58:04 Discussed diagnosis and treatment LN2 x 6 to ak's on face, EARS, SCALP Liquid Nitrogen may sting after the treatment. You may clean the area as usual. If the area blisters it is ok to pop as this will help with the comfort. You may apply either Aquaphor to the areas if you prefer but it is not necessary. On occasion a blood blister forms. If this happens to you please contact the office. Shave bx to mid vertex Your shave biopsy has been covered with a latex free bandage. Please keep the area dry for 24 hours if possible. After the 24 hours you can change the bandage 2 X Day for approximately 5 days. It is recommended to change the bandage dry to dry. No Neosporin. If the wound seems to be too moist then take the bandage off and allow the wound to dry out. Should you notice any painfulness, exquisite tenderness, yellow or green discharge then call the office immediately so that the wound can be evaluated. Recheck in 6 mo Not available 08/26/2017 10:57:59 10/31/2017 [id number] actinic keratosi s: care instructions [email or web address] Not available 10/31/2017 16:56:14 REV DIAGNOSIS AN D TREATMENT LN2 X 3 TO AK ON THE VERTEX, LEFT FOREARM Liquid Nitrogen may sting after the treatment. You may clean the area as usual. If the area blisters it is ok to pop as this will help with the comfort. You may apply either Aquaphor to the areas if you prefer but it is not necessary. On occasion a blood blister forms. If this happens to you please contact the office. PATIENT WILL RETURN AFTER HIS VACATIONS FOR EDCX3 ON THE MID VERTEX IN DECEMBER Sun precautions discussed. Avoid the sun between 10 and 4 during the peak UV times. Use sun block every day, even when it is cloudy. Wear a hat with a wide brim. Thin white linen or cotton shirts are excellent protection, particularly if they are treated with sun block. Consider sun protected clothing . Wear sun block! Reapply the sun block every 1-2 hours, particularly if sweating a lot or in the water. Not available 10/31/2017 16:56:58 REV DIAGNOSIS AN D TREATMENT LN2 X 3 TO AK ON THE VERTEX, LEFT FOREARM Liquid Nitrogen may sting after the treatment. You may clean the area as usual. If the area blisters it is ok to pop as this will help with the comfort. You may apply either Aquaphor to the areas if you prefer but it is not necessary. On occasion a blood blister forms. If this happens to you please contact the office. PATIENT WILL RETURN AFTER HIS VACATIONS FOR EDCX3 ON THE MID VERTEX IN DECEMBER Sun precautions discussed. Avoid the sun between 10 and 4 during the peak UV times. Use sun block every day, even when it is cloudy. Wear a hat with a wide brim. Thin white linen or cotton shirts are excellent protection, particularly if they are treated with sun block. Consider sun protected clothing . Wear sun block! Reapply the sun block every 1-2 hours, particularly if sweating a lot or in the water. [place] [id number] Not available 10/31/2017 16:57:01 02/13/2018 [id number] REV THE DIAGNOSI S AND TREATMENT RX EFUDEX TWICE DAILY X 2 MO , START OCT SHAVE THE MID VERTEX FOLLOW WITH EDCX3 TODAY , FINAL DEFECT 1.8 CM RECHECK WITH DERM IN [place] [id number] Not available 02/13/2018 10:23:45 REV THE DIAGNOSI S AND TREATMENT RX EFUDEX TWICE DAILY X 2 MO , START OCT SHAVE THE MID VERTEX FOLLOW WITH EDCX3 TODAY , FINAL DEFECT 1.8 CM RECHECK WITH DERM IN [place] [id number] Not available 02/13/2018 10:23:53 08/20/2018 [id number] warts: care instructions [place] [id number] Not available 08/20/2018 10:39:11 rev the diagnosi s and treatment ln2 x 1 to vv ln2 x 1 to ak Liquid Nitrogen may sting after the treatment. You may clean the area as usual. If the area blisters it is ok to pop as this will help with the comfort. You may apply either Aquaphor to the areas if you prefer but it is not necessary. On occasion a blood blister forms. If this happens to you please contact the office. 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 You may clean the area as usual. If the area blisters it is ok to pop as this will help with the comfort. You may apply either Aquaphor to the areas if you prefer but it is not necessary. On occasion a blood blister forms. If this happens to you please contact the office. 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 Results Created Date Observation Date Name Description Value Unit Range Abnormal Flag Note LastModifiedBy Organization Detail LastModifiedTime 08/26/19 18 08/26/2017 derma topat holog y, tissu e specimen A: MID VERTEX Not Available [facility] [address], [place], [address], 08/28/2017 17:55:29 08/26/19 18 08/26/2017 derma topat holog y, tissu e ICD9 code 232.4 Not Available [facility] [address], [place], [address], 08/28/2017 17:55:29 08/26/19 18 08/26/2017 derma topat holog y, tissu e clinical text R/O SCC CHECK MARGIN S Not Available [facility] [address], [place], [address], 08/28/2017 17:55:29 08/26/19 18 08/26/2017 derma topat holog y, tissu e diagnosis comment The surgic al margin is free of involv ement in the planes of sectio ns examin ed. Not Available [facility] [address], [place], [address], 08/28/2017 17:55:29 08/26/19 18 08/26/2017 derma topat holog y, tissu e gross text Receiv ed in formal in is a 10x8x2 mm shave specim en of skin. Bisect ed and submit lindsey in one casset te(s). Not Available [facility] [address], [place], [address], 08/28/2017 17:55:29 08/26/19 18 08/26/2017 derma topat holog y, tissu e microscopic description Secti ons show promi nent epide rmal acant hosis with disor dered proli ferat ion of atypi harshal kerat inocy leia that exten d throu ghout the full thick ness of the epide rmis. Epide rmal pallo r is prese nt. There is promi nent overl griselda hyper kerat osis/ parak erato sis. Solar elast osis is obser jesús. Atypi harshal kerat inocy leia are noted to exten d along adnex al struc tures as well. Assoc iated chron ic lymph ocyti c infla mmati on is ident ified . Not Available [facility] [address], [place], [address], 08/28/2017 17:55:29 08/26/19 18 08/26/2017 derma topat holog y, tissu e reading physician ELAYNE YANG AND Not Available [facility] [address], [place], [address], 08/28/2017 17:55:29 Result Notes None recorded. Problems Name Problem SNOMED Code Status Onset Date Resolution Date Notes Provider Name and Address Organization Details Recorded Time Actinic keratosis Active Crista Kraft NP [address] [facility] 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, [place], [address], [place] [facility], [facility] 6 10:49:20 Problem Notes None recorded. Procedures Surgical History Date Name Laterality Status Provider Name and Address Organization Details Recorded Time 08/20/19 19 VV completed MARCEL Soto [facility] [address], [place], [address], [place] [facility], [facility] 08/20/2018 10:37:14 08/20/19 19 Cryosurgery (AKs) completed MARCEL Soto [facility] [address], [place], [address], [employer] [facility], [facility] 08/20/2018 10:37:02 02/14/20 18 ED&C completed MARCEL Soto [facility] [address], [place], [address], [employer] [place] [facility], [facility] 02/13/2018 10:17:52 08/26/19 18 Cryosurgery (AKs) completed MARCEL Soto [facility] [address], [place], [address], [employer] [place] [facility], [facility] 08/26/2017 10:51:46 08/26/19 18 Shave removal completed MARCEL Soto [facility], [place], [address], [employer] [facility], [facility] 08/26/2017 10:44:54 01/10/20 17 Cryosurgery (SKs) completed MARCEL Soto [facility] [address], [place], [address], [place] [facility], [facility] 01/09/2017 10:23:17 01/10/20 17 Cryosurgery (AKs) completed MARCEL Soto [facility] [address], [place], [address], [place] [facility] 01/09/2017 10:23:09 05/03/20 16 Cryosurgery (SKs) completed MARCEL Soto [facility] [address], [place], [address], [place] [facility] 05/03/2016 11:13:06 05/03/20 16 Cryosurgery (AKs) completed MARCEL S[address] [facility], [place], [address], [employer], [employer] 05/03/2016 11:12:50 03/15/20 16 Cryosurgery (SKs) completed Crista Kraft, MARCEL [address], [place], [address], [facility], [facility] 03/15/2016 22:21:12 03/15/20 16 Cryosurgery (AKs) completed Crista Kraft, MARCEL [address] [facility] [address], [place], [address], [facility], [facility] 03/15/2016 22:21:03 02/23/20 16 Cryosurgery (SKs) completed Crista Kratf NP [address] [facility], [place], [address], [employer], [facility] 02/23/2016 10:49:21 02/23/20 16 Cryosurgery (AKs) completed Crista Kraft, MARCEL [address] [facility], [place], [address], [employer], [facility] 02/23/2016 15:49:27 Imaging Results None recorded. Procedure Notes None recorded. Medical Equipment None Reported. Allergies No known drug allergies Medications Name Sig Start Date Stop Date Status Note LastModified by Organization Details LastModified Time Efudex 5 % topical cream APPLY A SUFFICIENT AMOUNT TO COVER THE LESIONS IN THE AFFECTED AREA(S) BY TOPICAL ROUTE 2 TIMES PER DAY x 2 months 2017 active Not Available Not Available Not Avai lable losartan 25 mg tablet Take 1 tablet every day by oral route. active Not Available Not Available No t Available Asprin Ec Low Dose 81 mg tablet,linnette yed release Take 1 tablet every day by oral route. active Not Available Not Available No t Available metformin active Not Available Not Anna ilable Not Available Vitals Date Recorded Body height Body mass index (BMI) Body weight Body temperature Systolic blood pressure Diastolic blood pressure Provider Name and Address Organization Details Last Updated DateTime 7 165.1 cm 31.6 kg/m2 48450.5 5 g 97.8 [degF] 112 mm[Hg] 70 mm[Hg] Lyle [place] [employer] [facility] 7 14:18:54 Date Recorded Body height Body mass index (BMI) Body weight Body temperature Systolic blood pressure Diastolic blood pressure Provider Name and Address Organization Details Last Updated DateTime 8 165.1 cm 31.6 kg/m2 96368.5 5 g 98 [degF] 120 mm[Hg] 80 mm[Hg] Lyle Burton [employer] [facility] 8 10:10:00 Date Recorded Body height Body mass index (BMI) Body weight Body temperature Systolic blood pressure Diastolic blood pressure Provider Name and Address Organization Details Last Updated DateTime 8 165.1 cm 32.4 kg/m2 38700.5 1 g 97.8 [degF] 110 mm[Hg] 80 mm[Hg] Lyle Akosua [employer] [facility] 8 16:13:03 Date Recorded Body height Body mass index (BMI) Body weight Body temperature Systolic blood pressure Diastolic blood pressure Provider Name and Address Organization Details Last Updated DateTime 8 165.1 cm 32.4 kg/m2 91516.5 1 g 96.5 [degF] 118 mm[Hg] 78 mm[Hg] Anahi Shreya [employer] [facility] 8 09:38:42 Date Recorded Body height Body mass index (BMI) Body weight Body temperature Systolic blood pressure Diastolic blood pressure Provider Name and Address Organization Details Last Updated DateTime 9 165.1 cm 31.5 kg/m2 66969.9 6 g 98.2 [degF] 118 mm[Hg] 70 mm[Hg] [facility] [place] [employer] [facility] 9 10:10:42 Social History Question Answer Notes LastModified by Organizat ion Details LastModified Time Tobacco Smoking Status Never Smoker Lupe caballero [facility] [employer] [facility] 02/23/2016 10:20:57 Do You Have An Advance Directive? No [email or web address] Information not available 02/23/2016 What Is Your Level Of Alcohol Consumption? None Information not available 02/23/2016 How Much Tobacco Do You Chew? None Information not available 02/23/2016 Exotic Pets No Information n ot available 02/23/2016 What Was The Date Of Your Most Recent Tobacco Screening? 08/20/2018 Information n ot available 01/21/2019 How Much Tobacco Do You Smoke? No [email or web address] Information not available 02/23/2016 Do You Use Sunscreen Routinely? No [email or web address] Information not available 02/23/2016 Sex: Unknown Functional Status None recorded. Mental Status None recorded. Family History Nothing Reported. Medical History Condition Response Diabetes Y Anxiety Disorder N Malignant Melanoma N Coronary Artery Disease N Gout N Basal cell carcinoma N Arthritis N Hyperthyroidism N Tuberculosis N Cancer N Stroke N Diverticulitis N Asthma N COPD N Depression N Hypothyroidism N Chrones N squamous cell carcinoma N GERD/Reflux N High Cholesterol N Liver Disease N Heart Disease N Pulmonary Embolism N Fibromyalgia N Hypertension N Osteoporosis N Kidney Disease N Past Encounters Encounter ID Performer Location Encounter Start Date Encounter Closed Date Diagnosis/Indication Diagnosis SNOMED-CT Code Diagnosis ICD10 Code Diagnosis Note [id number] Crista SamuelSwathi Kraft NP [facility] [address] [place] [address] 02/23/2016 09:53:02 02/23/2016 10:50:47 Actinic keratosis 403700987 L57.0 Senile hyperkeratosis 39 7035717 L82.1 [id number] Crista SameulSwathi Kraft NP [facility] [address] [place] [place] [address] 03/15/2016 08:42:15 03/15/2016 09:45:56 Actinic keratosis 556801562 L57.0 Senile hyperkeratosis 39 9102108 L82.1 [id number] Crista JimmieSwathi Kraft NP [facility] [address] [place] [place] [address] 05/03/2016 10:07:45 05/03/2016 11:09:12 Actinic keratosis 490261562 L57.0 Senile hyperkeratosis 39 8389866 L82.1 [id number] Crista SamuelSwathi Kraft NP [facility] [address] [place] [place] [address] 11/15/2016 08:59:49 11/15/2016 10:02:09 Actinic keratosis 276807617 L57.0 Senile hyperkeratosis 39 6685037 L82.1 [id number] Crista Kraft NP [facility] [address] [place] [address] [place] [address] 01/09/2017 09:48:35 01/09/2017 10:22:50 Actinic keratosis 220281250 L57.0 Senile hyperkeratosis 39 3552024 L82.1 [id number] Crista Kraft NP [facility] [address] [place] [address] [place] [address] 06/13/2017 14:07:13 06/13/2017 14:50:19 Actinic keratosis 228789668 L57.0 Senile hyperkeratosis 39 9914643 L82.1 [id number] Crista Kraft NP [facility] [address] [place] [address] [place] [address] 08/26/2017 09:55:12 08/26/2017 10:58:48 Neoplasm of uncertain behavior of skin of scalp 31630795 D48.5 Actinic keratosis L57.0 [id number] Crista Kraft NP [facility] [address] [place] [address] [place] [address] 10/31/2017 15:43:15 10/31/2017 16:56:39 Actinic keratosis 023913308 L57.0 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 440470573 D04.9 [id number] Crista Kraft NP [facility] [place] [address] 02/13/2018 09:12:55 02/13/2018 10:22:12 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 12460547 D04.4 [id number] Crista Kraft NP [facility] [address] [place] [address] [place] [address] 08/20/2018 10:01:10 08/20/2018 10:32:05 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 Carcinoma in situ of skin 23051000 D04.9 Altered se nsation of skin 460236508 R20.9 R20.8 Nakita 765633195 L72.0 Health Concerns Section Related Observation LastModified by Organization Detai ls LastModified Time None Recorded Concern Status LastModified by Organization Details LastModified Time None Recorded Advance Directives Directive N: Payers Encounter Date Sequence Insurance Name Policy Number Policy Medrano Covered Member ID Medrano Member ID Guarantor Name 06/13/2017 1 *SELF PAY* De si W Aj 08/26/2017 1 *SELF PAY* De si W Aj 10/31/2017 1 *SELF PAY* De si W Aj 02/13/2018 1 *SELF PAY* De si W Aj 08/20/2018 1 *SELF PAY* De si W Aj Notes Date Note Type Note Provider Name and Address Organization Details Recorded Time 7 text/html Follow UpReported bypatient.Visit For:prior reason for office visit (ak sk) Status Updatesame Any new problems or Concernsconcerns/probl ems(Pt state that he has lesions on top of scalp, left zoroastrianism, and foreh ead) Do you need a prescription refill?no MedicationsCurrent Medication for this Diagnosis? (none)Notes:Pt state that he has lesions on top of scalp, left zoroastrianism, and forehead Crista Kraft NP [address] [facility] [address], [place], [address], [employer] 06/14/2017 15:29:36 8 text/html Follow UpReported bypatient.Visit For:prior reason for office visit (ak clinicallysk clinically) Status Updatesame Any new problems or Concernsconcerns/probl ems(growth is back on scalp) Do you need a prescription refill?no MedicationsCurrent Medication for this Diagnosis? (none)Notes:last ov LN2 was applied x 15 to face and scalp AK Ln2 applied to sk x2 scalp Crista Kraft NP [address] [facility] [address], [place], [address], [employer] 08/26/2017 10:59:05 8 text/html Biopsy Follow UpReported bypatient.Pt is here for a follow up on their biopsy(ies) site which was done on:Date of procedure: (08/26/2017); The site(s) are well healed.; The patient was given a copy of their pathology report.; no sutures; result: (THE LESION WAS AN EARLY SKIN CANCER WHICH WAS COMPLETELY REMOVED WITH THE SHAVE BIOPSY); location: (mid vertex); AK R/O SCCFollow UpReported bypatient.Visit For:prior reason for office visit (Ak's clinically face/earsneoplasm of uncertain behavior of skin of scalp) Status Updateimproving Any new problems or Concernsconcerns/probl ems(pt states that upon last visit he had biopsy of mid vertex - after 2 weeks it grew back and fell off) Do you need a prescription refill?no Medicationsmedication side effects?(none); Current Medication for this Diagnosis? (none) Crista Kratf NP [address] [facility], [place], [address], [employer] 10/31/2017 16:57:15 8 text/html BiopsyReported bypatient.lesionLocati on(s) (scalp); allergies to lidocain or epi? (none); last ov -- path showed lesion as early skin cancer note was read as possible shave or edncNotes:pt would like right ear check for possible lesion I spoke with patient after he left the building regarding his ear. I asked him to return so rCista could look at it. he stated that it's such a small area that he isn't concerned. he stated that if it gets bigger or starts to bother him that he'll call for an appointment. jaron Kraft NP [address] [facility], [place], [address], [employer] 02/13/2018 12:08:29 9 text/html Chemotherapy TreatmentReported bypatient.Medicationto pical medication efudex; location of treatment (mid vertex) Patient is here for chemotherapy treatment follow upPatient has been applying the cream twice a day for 8 weeks.; The treated areas are reacting to the treatment (pt states that area did turn red and irritated); The patient did not encounter any problems while using this cream.Notes:pt states that he does have a new spot on his right forearm that has come up about 2 months ago not itchy or tender pt states that he would like his scalp rechecked now that he has finished his efudex treatment. Crista Kraft, MARCEL [address] [facility] [address], [place], [address], [facility] Dermatology, [facility] 08/20/2018 10:41:06
--- OUTSIDE RECORDS SUMMARY | 2024-08-16 00:21 | XMS_ITS | Clinical Summary ---
Author Organization [facility] [employer] Address [address] [place] [place] [address] Care Team Providers Care Motors Assembler Name Role Phone TiaMoshe negrete Primary Care Provider [phone] Source Comments [facility] [employer],non-owned Affiliates and Associated Physician Practices is amultiple site organization consisting of ambulatory clinics and hospital sitesin [place], [place], [place] and [place]. This disclosure is being madepursuant to the Care Everywhere program and may not contain all information available regarding this patient. Last updated 18.[facility] [employer] Allergies No known active allergies Medications * Be aware that medications may not be up to date on this document. Alwaysverify current medications with the patient. Medication Sig Dispensed Refills Start Date End Date Status METFORMIN HCL PO Take 1,000 mg by mouth once daily Active pravastatin (PRAVACHOL) 20 MG tablet Take 20 mg by mouth at bedtime Active lisinopril (PRINIVIL; ZESTRIL) 2.5 MG tablet Take 2.5 mg by mouth once daily Active aspirin (ASPIRIN) 81 MG tablet Take 81 mg by mouth once daily Active Active Problems No known active problems Family History Medical History Relation Name Comments Asthma Neg Hx CVA Neg Hx Cancer - Breast Neg Hx Cancer - Other Neg Hx Cancer - Skin, Melanoma Neg Hx Cancer - Skin, Non Melanoma Neg Hx Eczema Neg Hx Hemophilia Neg Hx Psoriasis Neg Hx Social History Tobacco Use Types Packs/Day Years Used Date Smoking Tobacco: Never Smokeless Tobacco: Never Alcohol Use Standard Drinks/Week Comments No 0 (1 standard drink = 0.6 oz pur e alcohol) Sex and Gender Information Value Date Recorded Sex Assigned at Not on file Gender Identity Not on file Sexual Orientation Not on file Last Filed Vital Signs Vital Sign Reading Time Taken Comments Blood Pressure 100/76 02/18/2019 9:42 AM CDT Pulse 82 02/18/2019 9:42 AM CDT Temperature 36.7 C (98.1 F) 06/21/2016 3:08 PM TURRET LATHE SET UP OPERATOR Respiratory Rate 16 06/21/2016 3:08 PM TURRET LATHE SET UP OPERATOR Oxygen Saturation 96% 02/18/2019 9:42 AM CDT Inhaled Oxygen Concentration - - Weight 82.6 kg (182 lb) 02/18/2019 7:29 AM CDT Height 165.1 cm (5' 5 ) 02/18/2019 7:29 AM CDT Body Mass Index 30.29 02/18/2019 7:29 AM CDT Plan of Treatment Health Maintenance Due Date Last Done Comments COLOGUARD (AGES 45-75) - COL ON CA SCREENING 1953 COLON MONITORING 1953 COLONOSCOPY - COLON CA SCREENING 1953 CT COLONOGRAPHY - COLON CA SCREENING 1953 Colorectal Cancer Screening 1953 FIT - COLON CA SCREENING 1953 FLEX SIG - COLON CA SCREENING 1953 MEDICARE AWV 12 MONTHS 1953 HEPATITIS C SCREENING 12/06/1971 DTAP/TDAP/TD VACCINES (1 - Tdap) 1972 PNEUMOCOCCAL VACCINE 50+ (1 of 1 - PCV) 12/11/2003 ZOSTER VACCINE (1 of 2) 12/11/2003 SCREENING FOR DIABETES 01/21/2019 COVID-19 VACCINE ( - 2023-2 5 season) 2024 INFLUENZA VACCINE (#1) 2024 DEPRESSION SCREENING 06/30/2024 Respiratory Syncytial Virus (RSV) Vaccine Pt: or over 60 yrs (1 - 1-dose 75+ series) 2028 HEPATITIS B VACCINE Aged Out No longe r eligible based on patient's age to complete this topic HIB VACCINE Aged Out No longer eligi ble based on patient's age to complete this topic HPV VACCINE Aged Out No longer eligi ble based on patient's age to complete this topic MENINGOCOCCAL (Group B) VACCINE Aged Out No longer eligible based on patient's age to complete this topic MENINGOCOCCAL VACCINE Aged Out No jael carin eligible based on patient's age to complete this topic Care Teams Motors Assembler Relationship Specialty Start Date End Date Moshe Weber DO [address] [address] PCP - General 01/21/19
--- OUTSIDE RECORDS SUMMARY | 2024-08-16 00:21 | XMS_ITS | Encounter Summary ---
Author Organization [facility] Address [address] [place] [address] Care Team Providers Care Concrete Mixer Operator Name Role Phone Moshe Weber Primary Care Provider [phone] Encounter Details Date Type Department Care Team (Late st Contact Info) Description 03/23/2019 Lab Requisition [facility] [address] [facility] [place], [place] [address] Camille Garcai DO [address] [facility] 3 [place] [address] Social History Tobacco Use Types Packs/Day Years [...] Priority Date/Time Associated Diagnosis Comments DERMATOPATHOLOGY Routine 03/22/2019 12:0 0 AM CDT documented in this encounter Results * DERMATOPATHOLOGY (03/22/2019 12:00 AM CDT) Case Report Dermatopathology Report Case: [id number] Authorizing Provider: Camille Garcia DO Collected: 03/22/2019 12:00 AM Ordering Location: [facility] Derm[facility] Lab Received: 03/23/2019 07:06 AM Pathologist: Cecelia Reyna MD Specimen: Skin, right upper back 12:48 PM CDT DERMATOPATHOLOGY LABORATORY Final Diagnosis Specimen A. SKIN, right upper back: DERMATOFIBROMA (D23.9) 12:48 PM CDT DERMATOPATHOLOGY LABORATORY Clinical History DF vs nevus R/O atypia. 12:48 PM CDT DERMATOPATHOLOGY LABORATORY Gross Description Specimen A: Received is one formalin filled container labeled with the patient's name and designated right upper back. The specimen consists of a shave measuring [id number]. Jar 0. 12:48 PM CDT DERMATOPATHOLOGY LABORATORY Microscopic Description Specimen A. SKIN, right upper back: There is epidermal hyperplasia. Within the dermis, there are fibrohistiocytic cells in haphazard array among coarse collagen bundles. 12:48 PM CDT DERMATOPATHOLOGY LABORATORY Disclaimer An external and internal positive and negative controls are appropriate for the histochemical, immunohistochemical and immunofluorescence stain(s) in this case (if any), except where stated explicitly. The performance characteristics of the stain(s) cited in this report were developed and its performance characteristic determined by the Dermatopathology Laboratory at [facility], directed by Dr. Jose Morgan. These tests need not be, and therefore are not, approved by the [place] Food and Drug Administration. The tests are used for clinical purposes. Billing Codes Specimen Charges Stain Charges 01327 1 12:48 PM CDT DERMATOPATHOLOGY LABORATORY Embedded Images 12:48 PM CDT DERMATOPATHOLOGY LABORATORY Pathology/Cytolog y TISSUE SPECIMEN FROM SKIN / Unknown 03/22/2019 03/23/2019 7:06 AM CDT Camille Garcia DO LAB - PATHOLOGY/C YTOLOGY ORDERABLES DERMATOPATHOLOGY LABORATORY [facility] - Department of Dermatology [address] [place] [address], 5th Floor Lab [address] [phone] documented in this encounter Visit Diagnoses Not on filedocumented in this encounter Care Teams Concrete Mixer Operator Relationship Specialty Start Date End Date Moshe Weber DO [address] [place] [address] PCP - General 01/21/19 documented as of this encounter
--- OUTSIDE RECORDS SUMMARY | 2024-08-16 00:21 | XMS_ITS | Patient Health Summary ---
Author Organization [facility] [employer] Address [address] [place] [address] Care Team Providers Care Body Straightener Name Role Phone Moshe Weber Primary Care Provider [phone] Note from [facility],non-owned Affiliates and Associated Physician Practices is amultiple site organization consisting of ambulatory clinics and hospital sitesin [place], [place], [place] and [place]. This disclosure is being madepursuant to the Care Everywhere program and may not contain all information available regarding this patient. Last updated 18.[facility] [employer] Allergies No known active allergies Medications * Be aware that medications may not be up to date on this document. Alwaysverify current medications with the patient. * METFORMIN HCL PO Take 1,000 mg by mouth once daily * pravastatin (PRAVACHOL) 20 MG tablet Take 20 mg by mouth at bedtime * lisinopril (PRINIVIL; ZESTRIL) 2.5 MG tablet Take 2.5 mg by mouth once daily * aspirin (ASPIRIN) 81 MG tablet Take 81 mg by mouth once daily Active Problems No known active problems Social History Tobacco Use Types Packs/Day Years [...] 36.7 C (98.1 F) 06/21/2016 3:08 PM HEARING CONSULTANT Respiratory Rate 16 06/21/2016 3:08 PM HEARING CONSULTANT Oxygen Saturation 96% 02/18/2019 9:42 AM CDT Inhaled Oxygen Concentration - - Weight 82.6 kg (182 lb) 02/18/2019 7:29 AM CDT Height 165.1 cm (5' 5 ) 02/18/2019 7:29 AM CDT Body Mass Index 30.29 02/18/2019 7:29 AM CDT Procedures * DERMATOPATHOLOGY(Performed 11/25/2019) * DERMATOPATHOLOGY(Performed 03/22/2019) * [facility] MOHS MG TQ H/N/H/F/G 1ST STAG 5 BLOC(Performed 02/18/2019) 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 Case Report Dermatopathology Report Case: [id number] Authorizing Provider: Camille Garcia DO Collected: 11/25/2019 12:00 AM Ordering Location: [facility] DermPath Lab Received: 11/26/2019 07:53 AM Pathologist: Katie Armstrong MD Specimen: Skin, left chest 0 11:58 AM CDT DERMATOPATHOLOGY LABORATORY Final Diagnosis Specimen A. SKIN, left chest: BASAL CELL CARCINOMA, NODULAR TYPE (C44.519) 0 11:58 AM CDT DERMATOPATHOLOGY LABORATORY Clinical History R/O NMSC, pink papule. 0 11:58 AM CDT DERMATOPATHOLOGY LABORATORY Gross Description Specimen A: Received is one formalin filled container labeled with the patient's name and designated left chest. The specimen consists of a shave measuring [id number]. Jar 0. 0 11:58 AM CDT DERMATOPATHOLOGY LABORATORY Microscopic Description Specimen A. SKIN, left chest: Within the dermis there are aggregates of basaloid cells with a high nuclear to cytoplasmic ratio and peripheral palisading. 0 11:58 AM CDT DERMATOPATHOLOGY LABORATORY Disclaimer An external and internal positive and negative controls are appropriate for the histochemical, immunohistochemical and immunofluorescence stain(s) in this case (if any), except where stated explicitly. The performance characteristics of the stain(s) cited in this report were developed and its performance characteristic determined by the Dermatopathology Laboratory at [facility], directed by Dr. Jose Morgan. These tests need not be, and therefore are not, approved by the [place] Food and Drug Administration. The tests are used for clinical purposes. Billing Codes Specimen Charges Stain Charges 24834 1 0 11:58 AM CDT DERMATOPATHOLOGY LABORATORY Embedded Images 0 11:58 AM CDT DERMATOPATHOLOGY LABORATORY Pathology/Cytolog y TISSUE SPECIMEN FROM SKIN / Unknown 11/25/2019 11/26/2019 7:53 AM CDT Camille Garcia DO LAB - PATHOLOGY/C YTOLOGY ORDERABLES DERMATOPATHOLOGY LABORATORY [facility] - Department of Dermatology [facility]/[address] [phone] * [facility] MOHS MG TQ H/N/H/F/G 1ST STAG 5 BLOC (02/18/2019 10:09 AM CDT) Narrative Meghan Nguyen MD - 02/18/2019 10:09 AM CDT Meghan Nguyen MD 03/01/2019 6:18 AM Date of Service: 02/18/2019 Surgery: Mohs micrographic surgery Indication: Tumor location Repair Type: second intent 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 PostOp Size: 1.4x1.3 cm. Mohs Level of Defect: fat Procedure: The patient was placed supine on the operating table. The cancer was identified, outlined with a marker, and verified by the patient. The entire surgical field was prepped with Hibiclens. The surgical site was anesthetized using Lidocaine 1% with epinephrine 1:100,000 buffered with sodium bicarbonate 8.4% in a 1:10 ratio. The area of clinically apparent tumor was debulked with 2mm curette. The layer of tissue was then surgically excised using a #15 blade and was then transferred onto a specimen sheet maintaining the orientation of the specimen. Hemostasis was obtained using monopolar electrodessication. The wound site was then covered with a dressing while the tissue samples were processed for examination. The excised tissue was transported to the Mohs histology laboratory maintaining the tissue orientation. The tissue specimen was relaxed so that the entire surgical margin was in a a single horizontal plane for sectioning andinked for precise mapping. A precise reference map was drawn to reflect the sectioning of the specimen, colored inking of the margins, and orientation on the patient. The tissue was processed using horizontal sectioning ofthe base and continuous peripheral margins. The histopathologic sections were reviewed in conjunction with the reference map. Total blocks: 1 Total slides: 3 No additional tumor was identified on microscopic examination, therefore Mohs surgery was complete. EVALUATION OF MOHS DEFECT FOR RECONSTRUCTION The patient is status post Mohs' micrographic surgery. The surgical site was examined with attention to normal anatomic and functional relationships. After consideration and discussion of multiple options with the patient,it was determined that healing by second intention would offer the best chance for preservation/adventism of all normal anatomic and functional relationships. The patient verbalized understanding and agrees with this plan.It is also understood that should second intention healing be sub-optimal, additional procedures such as scar revision, steroid injection or dermabrasion may be recommended. The open wound was cleaned with Hibiclens, and a thick layer of ointment was applied. A pressure dressing consisting of non-adherent gauze, gauze and hypafixwas applied. Wound care was discussed with patient both orally and in writing. The patient stated understanding and agreement of the course of care. Dr. Nguyen performed the entire surgery, and documentation used to initiate this operative report. I entered the information in our Class Messenger DocFlowsheet with the information provided by Dr. Nguyen on her handwritten, paper format, surgical worksheet, which was then used to initiate the create of this note. Dr. Nguyen then reviewed and edited the note as needed to complete the note. Suad Carty I have reviewed the note, edited it as necessary and performed the entire procedure. Meghan Nguyen MD Data Entry Assistant Meghan Nguyen MD PROCEDURE/MINOR SURG ICAL ORDERABLES Care Teams Body Straightener Relationship Specialty Start Date End Date Moshe Weber DO [address] [place], [place] [id number] PCP - General 01/21/19
--- OUTSIDE RECORDS SUMMARY | 2024-08-16 00:21 | XMS_ITS | Encounter Summary ---
Author Organization [facility] Address [address] [place] [address] Care Team Providers Care Fiberglass Bonding Machine Tender Name Role Phone Moshe Weber Primary Care Provider [phone] Encounter Details Date Type Department Care Team (Late st Contact Info) Description 11/26/2019 Lab Requisition [facility] [address] [facility], [place] [address] Camille Garcia DO [address] [facility] 3 [place] [address] Social History Tobacco Use Types Packs/Day Years [...] Priority Date/Time Associated Diagnosis Comments DERMATOPATHOLOGY Routine 11/25/2019 12:0 0 AM CDT documented in this encounter Results * DERMATOPATHOLOGY (11/25/2019 12:00 AM CDT) Case Report Dermatopathology Report Case: [id number] Authorizing Provider: Camille Garcia DO Collected: 11/25/2019 12:00 AM Ordering Location: [facility] Received: 11/26/2019 07:53 AM Pathologist: [...] The specimen consists of a shave measuring [id number]. Jar 0. 0 11:58 AM CDT DERMATOPATHOLOGY [...] characteristic determined by the Dermatopathology Laboratory at [facility], directed by Dr. Jose Morgan. These tests need not be, and therefore are not, approved by the [place] Food and Drug Administration. The tests are used for clinical purposes. Billing Codes Specimen Charges Stain Charges 97903 1 0 11:58 AM CDT DERMATOPATHOLOGY LABORATORY Embedded Images 0 11:58 AM CDT DERMATOPATHOLOGY LABORATORY Pathology/Cytolog y TISSUE SPECIMEN FROM SKIN / Unknown 11/25/2019 11/26/2019 7:53 AM CDT Camille Garcia DO LAB - PATHOLOGY/C YTOLOGY ORDERABLES DERMATOPATHOLOGY LABORATORY [facility] - Department of Dermatology Child Care Development Specialist [place]/[address] [phone] documented in this encounter Visit Diagnoses Not on filedocumented in this encounter Care Teams Fiberglass Bonding Machine Tender Relationship Specialty Start Date End Date Moshe Weber DO [address] [place] [address] PCP - General 01/21/19 documented as of this encounter
--- OUTSIDE RECORDS SUMMARY | 2024-08-16 00:21 | XMS_ITS | Referral Summary ---
Author Organization [facility] Address [address] [place] [address] Care Team Providers Care General I Farmworker Name Role Phone Moshe Weber Primary Care Provider [phone] Source Comments [facility],non-owned Affiliates and Associated Physician Practices is amultiple site organization consisting of ambulatory clinics and hospital sitesin [place], [place], [place] and [place]. This disclosure is being madepursuant to the Care Everywhere program and may not contain all information available regarding this patient. Last updated 18.[facility] Allergies No known active allergies Medications * [...] Active Active Problems No known active problems Social [...] 36.7 C (98.1 F) 06/21/2016 3:08 PM GLUE LINE OPERATOR Respiratory Rate 16 06/21/2016 3:08 PM GLUE LINE OPERATOR Oxygen Saturation 96% 02/18/2019 9:42 AM CDT Inhaled Oxygen Concentration - - Weight 82.6 kg (182 lb) 02/18/2019 7:29 AM CDT Height 165.1 cm (5' 5 ) 02/18/2019 7:29 AM CDT Body Mass Index 30.29 02/18/2019 7:29 AM CDT Plan of Treatment Not on file Care Teams General I Farmworker Relationship Specialty Start Date End Date Moshe Weber DO [address] [address] PCP - General 01/21/19
[2024-08-16 06:20] VITALS: BP 108/82; PULSE 97; RESP 16; TEMP 36.1; O2SAT 97; BMI 32.3
[2024-08-16 06:48] LABS: Glucose Point of Care 143 mg/dl (65-105)
[2024-08-16] MEDS: LACTATED RINGERS 1,000 ML 150 ML IV CONT (06:49)
--- NOTE | 2024-08-16 07:09 | WPDANESEPPF ---
Anes - Initial Pre Proc Eval Procedure: Operation Date: 08/16/24 07:30 Proposed Procedures p Colonoscopy - Balbir Muir MD Date/Time: 08/16/24 07:09 Surgeon: Balbir Muir MD Pre Op Diagnosis: hx of colon polyps Patient Data Age: 68 Gender: M Height: 1.65 m Weight: 88.2 kg Last Vital Signs Temp 96.9 F L 08/16/24 06:20 Pulse 97 08/16/24 06:20 Resp 16 08/16/24 06:20 BP 108/82 08/16/24 06:20 Pulse Ox 97 08/16/24 06:20 O2 Del Method Room Air 08/16/24 06:20 Allergies Allergy/AdvReac Type Severity Reaction Status Date / Time No Known Allergies Allergy Verified 08/16/24 06:26 Home Medications ?Medication ?Instructions ?Recorded ?Confirmed ?Type omega-3 fatty acids 1,000 mg 1,000 mg PO DAILY #90 caps 08/07/20 08/16/24 Rx capsule (Fish Oil Concentrate) aspirin 81 mg tablet,delayed 81 mg PO DAILY 07/25/22 08/16/24 History release (Adult Aspirin Regimen) pravastatin 20 mg tablet See Rx Instructions .Route 03/16/24 08/16/24 Rx .COMPLEX #90 tabs lisinopril 2.5 mg tablet See Rx Instructions .Route 03/17/24 08/16/24 Rx .COMPLEX #90 tabs metformin 500 mg tablet See Rx Instructions .Route 03/24/24 08/16/24 Rx .COMPLEX #180 tabs Laboratory Tests 08/16/24 06:46 POC Capillary Glucose 143 H mg/dl (65-105) Patient hx anesthesia problems: none Family hx anesthesia problems: none Results Review: All pre-operative results and documents have been reviewed as part of the pre-operative evaluation. 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 States he wakes up once a night to use the restroom, does claim difficulty in maintaining an erection. Is okay to leave a detailed message regarding his private health information. Smoking status: Never smoker Second hand tobacco smoke exposure: No Alcohol intake: never Substance use: never Substance use type: does not use Lack of Transportation: No Lack of Food: Never True Current Housing: I Have Housing Concerned About Future Housing: No Difficulty Paying Gas/Electric Bills: No Difficulty Paying for Meds: No Currently Unemployed: No Education: Associate Degree Difficulty w/ Childcare or Family Care: No Living arrangements: with family Occupation/Education: occupation Additional occupation/education comments: Product Support Manager at [employer]. Gender identity (if verbalized by the patient): Male Sexual Orientation (if Verbalized by the Patient): Straight or Heterosexual Spiritual care concerns: No Agree to blood products: Yes Anes - Eval Final PreProcedure Day of Procedure 08/16/24 07:09 Patient weight: obese Heart: regular rate and rhythm Lungs: clear to auscultation Airway: Mallampati scale class II Neurological: alert and oriented Last oral intake: >/= 8 hours ASA classification: III Emergent: no Anesthetic plan: proceed Anesthesia type and monitoring: general GIVS and standard monitoring Results Review: All pre-operative results and documents have been reviewed as part of the pre-operative evaluation. HTN, hyperlipidemia, DM. Active w walking 1-2 fos, no cp or sob. Informed Consent: The patient's anesthetic plan and its attendant risks and benefits were discussed with the patient/family/POA. Questions were solicited and answers provided to the satisfaction of the patient/family/POA.
--- NOTE | 2024-08-16 07:51 | P.HP_ITS ---
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 States he wakes up once a night to use the restroom, does claim difficulty in maintaining an erection. Is okay to leave a detailed message regarding his private health information. Smoking status: Never smoker Second hand tobacco smoke exposure: No Alcohol intake: never Substance use: never Substance use type: does not use Lack of Transportation: No Lack of Food: Never True Current Housing: I Have Housing Concerned About Future Housing: No Difficulty Paying Gas/Electric Bills: No Difficulty Paying for Meds: No Currently Unemployed: No Education: Associate Degree Difficulty w/ Childcare or Family Care: No Living arrangements: with family Occupation/Education: occupation Additional occupation/education comments: Coordinate Measuring Equipment Operator at [employer]. Gender identity (if verbalized by the patient): Male Sexual Orientation (if Verbalized by the Patient): Straight or Heterosexual Spiritual care concerns: No Agree to blood products: Yes Meds Home Medications and Allergies Home Medications ?Medication ?Instructions ?Recorded ?Confirmed ?Type omega-3 fatty acids 1,000 mg 1,000 mg PO DAILY #90 caps 08/07/20 08/16/24 Rx capsule (Fish Oil Concentrate) aspirin 81 mg tablet,delayed 81 mg PO DAILY 07/25/22 08/16/24 History release (Adult Aspirin Regimen) pravastatin 20 mg tablet See Rx Instructions .Route 03/16/24 08/16/24 Rx .COMPLEX #90 tabs lisinopril 2.5 mg tablet See Rx Instructions .Route 03/17/24 08/16/24 Rx .COMPLEX #90 tabs metformin 500 mg tablet See Rx Instructions .Route 03/24/24 08/16/24 Rx .COMPLEX #180 tabs Allergies Allergy/AdvReac Type Severity Reaction Status Date / Time No Known Allergies Allergy Verified 08/16/24 06:26 Vital Signs Vital Signs - 24 hr 08/16/24 06:20 Temperature 96.9 F L Pulse Rate 97 Respiratory Rate 16 Blood Pressure 108/82 Pulse Oximetry 97 Oxygen Delivery Room Air Exam Const: General: cooperative and healthy appearing Resp: Effort & Inspection: normal respiratory effort and able to speak in complete sentences Auscultation: clear to auscultation bilaterally Cardio: Rate: regular rate Rhythm: regular rhythm GI: Inspection: normal to inspection GI Palp: No No hepatosplenomegaly present Auscultation: normal bowel sounds Rectal Exam: deferred Skin: General skin exam: normal color Psych: Appearance: grossly normal Mental Status: mental status grossly normal Assessment and Plan Assessment and plan (1) History of colonic polyps: Code(s): Z86.0100 - Personal history of colon polyps, unspecified Status: Acute Assessment and Plan: The patient is deemed a good candidate for the procedure. Consent signed. Will proceed.
[2024-08-16 07:56] VITALS: BP 81/52; PULSE 71; RESP 17; O2SAT 99
[2024-08-16 08:06] VITALS: BP 96/64; PULSE 72; RESP 19; O2SAT 99
[2024-08-16 08:16] VITALS: BP 112/75; PULSE 73; RESP 20; O2SAT 99
== END 2024-08-16 08:28 | disposition home or self-care (01) ==
PROVIDERS: PCP Nurse Practitioner; Referring Provider Internal Medicine Gastroenterology; Visit Provider Internal Medicine Gastroenterology
PROC: 0DJD8ZZ Inspection of Lower Intestinal Tract, Via Natural or Artificial Opening Endoscopic (ICD-10-PCS; CPT 45378; principal; 2024-08-16 07:30)
DX: Z12.11 Encounter for screening for malignant neoplasm of colon (principal); D12.3 Benign neoplasm of transverse colon; D12.4 Benign neoplasm of descending colon; K57.30 Diverticulosis of large intestine without perforation or abscess without bleeding; K64.8 Other hemorrhoids; E11.311 Type 2 diabetes mellitus with unspecified diabetic retinopathy with macular edema; E66.9 Obesity, unspecified; Z68.32 Body mass index [BMI] 32.0-32.9, adult
CPT/HCPCS: 45385; 82948; 88305; J2003; J2371; J2704; J7120